=== PATIENT | female | born 1960 | race Caucasian/White ===

== ENCOUNTER → 2020-05-18 | Outpatient (CLI) | payer BC, OTHER ==
[~2020-05-18] MED LIST: HYDROCODON-ACE1 EAC4 PO; LISINOPRIL20 MG PO; MIRALAX17 GM PO
== END ==
LOC: EXRD 05-11 13:30
DX: Q62.11 Congenital occlusion of ureteropelvic junction (principal); N13.30 Unspecified hydronephrosis
CPT/HCPCS: 76775

== ENCOUNTER → 2020-08-31 | Outpatient (CLI) | payer BC, OTHER | LOC: EXRD 11:21 | DX: Q62.11 Congenital occlusion of ureteropelvic junction (principal) | CPT/HCPCS: 76775 ==

== ENCOUNTER → 2021-02-22 | Outpatient (CLI) | payer BC ==
[2021-02-23 08:13] LABS: VITAMIN D, 25-HYDROXY 18.1 ng/mL (30.0-100.0)
[2021-02-23 12:14] LABS: RHEUMATOID ARTHRITIS FACTOR <10.0 IU/mL (0.0-13.9)
== END ==
LOC: LAB 09:36
PROVIDERS: Nurse Practitioner Family
DX: M25.561 Pain in right knee (principal); M54.50 Low back pain, unspecified; D89.9 Disorder involving the immune mechanism, unspecified; M25.50 Pain in unspecified joint; R76.8 Other specified abnormal immunological findings in serum; E55.9 Vitamin D deficiency, unspecified; M79.10 Myalgia, unspecified site; M47.898 Other spondylosis, sacral and sacrococcygeal region
CPT/HCPCS: 36415; 72202; 73560; 82550; 82728; 83520; 85652; 86140; 86200; 86431

== ENCOUNTER → 2021-03-17 | Outpatient (CLI) | payer BC | LOC: US 08:51 | DX: K76.0 Fatty (change of) liver, not elsewhere classified (principal) | CPT/HCPCS: 76705 ==

== ENCOUNTER → 2021-04-13 | Outpatient (CLI) | payer BC | LOC: KOH-I 09:00 | DX: D69.6 Thrombocytopenia, unspecified (principal); K76.0 Fatty (change of) liver, not elsewhere classified | CPT/HCPCS: 76705 ==